=== PATIENT | male | born 1950 | race Caucasian/White ===

== ENCOUNTER 2017-09-14 14:06 | Emergency (ER) | payer MEDICARE ==
[~2017-09-14] VITALS: Ht 177.8 cm; Wt 129.1 kg
[~2017-09-14 14:06] MED LIST: CARDIZEM CD 12120 MG PO; FE-TABS325 MG PO; FLOMAX 0.40.4 MG/CAP PO; FOLIC ACID 40400 MCG PO; LASIX 40MG TABL40 MG PO; MACROBID 1100 MG/CAP PO; MULTAQ400 MG PO; PRINIVIL10 MG PO; TYLENOL 500MG500 MG PO; ULTRAM50 MG PO; VITAMIN C500 MG PO; XARELTO20 MG PO
[2017-09-14 14:10] VITALS: TEMP 97.3
[2017-09-14] MEDS ORDERED: XARELTO20 MG PO (14:15)
[2017-09-14] MEDS ORDERED: CARTIA XT180 MG PO (14:15)
[2017-09-14] MEDS ORDERED: ZESTRIL40 MG PO (14:16)
[2017-09-14] MEDS ORDERED: LASIX 20MG TABL20 MG PO (14:16)
[2017-09-14 14:51] LABS: BASO # 0.1 (0.0-0.2); BASO % 0.6 % (0.0-2.0); EOS # 0.8 (0.0-0.7); EOS % 7.6 % (0-4.0); GRAN # 5.9 (1.4-6.5); GRAN % 58.9 % (42.2-75.2); HEMOGLOBIN 11.3 g/dl (13.5-18.0); LYMPH # 2.2 (1.2-3.4); LYMPH % 21.9 % (20.0-51.0); MEAN CELL VOLUME 86 fl (80.0-100.0); MEAN CORPUSCULAR HEMOGLOBIN 27 pg (27.0-31.0); MEAN CORPUSCULAR HGB CONC 31 g/dl (33.0-37.0); MEAN PLATELET VOLUME 10.4 fl (7.4-10.4); MONO # 1.1 (0.1-0.6); MONO % 10.4 % (1.7-9.3); PLATELET COUNT 286 K/mm3 (130-400); RED BLOOD COUNT 4.23 M/mm3 (4.20-5.60); REDCELL DISTRIBUTION WIDTH-CV 15.4 % (11.5-14.5)
[2017-09-14 14:58] LABS: HEMATOCRIT 36.2 % (42.0-52.0); INR 1.8 (0.8-3.0)
[2017-09-14 15:20] LABS: ALANINE AMINOTRANSFERASE 28 U/L (21-72); ALBUMIN 3.4 gm/dL (3.5-5.0); ALKALINE PHOSPHATASE 113 U/L (50-136); ANION GAP 13 mmol/L (7-16); AST,SGOT 18 U/L (15-37); BILIRUBIN,TOTAL 0.3 mg/dL (0.0-1.0); BLOOD UREA NITROGEN 20 mg/dL (9-20); CALCIUM 8.7 mg/dL (8.4-10.2); CARBON DIOXIDE 23 mmol/L (22-30); CHLORIDE 105 mmol/L (98-107); CREATININE, serum 1.07 mg/dL (0.66-1.25); GLUCOSE 98 mg/dL (74-106); POTASSIUM 4.3 mmol/L (3.4-5.0); SODIUM 141 mmol/L (137-145); TOTAL PROTEIN 7.2 gm/dL (6.4-8.2)
[2017-09-14 15:33] LABS: TROPONIN-I < 0.012 ng/mL (0.000-0.034)
[2017-09-14 16:57] VITALS: BP 110/80; PULSE 75
== END 2017-09-14 16:59 | disposition home or self-care (01) ==
LOC: COL.ER 14:06
PROVIDERS: Emergency Medicine
DX: I48.91 Unspecified atrial fibrillation (principal); R42 Dizziness and giddiness; I10 Essential (primary) hypertension
CPT/HCPCS: J1200; J2765; J7040

== ENCOUNTER 2017-10-08 19:12 | Emergency (ER) | payer MEDICARE ==
[~2017-10-08] VITALS: Ht 177.8 cm; Wt 127.3 kg
[~2017-10-08 19:12] MED LIST changes: +CARTIA XT180 MG PO; +LASIX 20MG TABL20 MG PO; +ZESTRIL40 MG PO
[2017-10-08 19:20] VITALS: TEMP 98.1
[2017-10-08 19:59] LABS: BASO # 0.1 (0.0-0.2); BASO % 0.5 % (0.0-2.0); EOS # 0.4 (0.0-0.7); EOS % 4.4 % (0-4.0); GRAN # 5.7 (1.4-6.5); HEMOGLOBIN 10.6 g/dl (13.5-18.0); LYMPH % 21.4 % (20.0-51.0); MEAN CELL VOLUME 85 fl (80.0-100.0); MEAN CORPUSCULAR HEMOGLOBIN 27 pg (27.0-31.0); MEAN CORPUSCULAR HGB CONC 32 g/dl (33.0-37.0); MEAN PLATELET VOLUME 9.5 fl (7.4-10.4); MONO % 11.2 % (1.7-9.3); PLATELET COUNT 278 K/mm3 (130-400); RED BLOOD COUNT 3.91 M/mm3 (4.20-5.60); REDCELL DISTRIBUTION WIDTH-CV 15.1 % (11.5-14.5)
[2017-10-08 20:02] LABS: HEMATOCRIT 33.4 % (42.0-52.0)
[2017-10-08 20:13] LABS: ALANINE AMINOTRANSFERASE 25 U/L (21-72); ALBUMIN 3.4 gm/dL (3.5-5.0); ALKALINE PHOSPHATASE 89 U/L (50-136); ANION GAP 12 mmol/L (7-16); AST,SGOT 21 U/L (15-37); BILIRUBIN,TOTAL 0.2 mg/dL (0.0-1.0); BLOOD UREA NITROGEN 18 mg/dL (9-20); CALCIUM 8.6 mg/dL (8.4-10.2); CARBON DIOXIDE 23 mmol/L (22-30); CHLORIDE 106 mmol/L (98-107); CREATININE, serum 0.89 mg/dL (0.66-1.25); GLUCOSE 117 mg/dL (74-106); POTASSIUM 3.9 mmol/L (3.4-5.0); SODIUM 141 mmol/L (137-145); TOTAL PROTEIN 7.2 gm/dL (6.4-8.2)
[2017-10-08 20:26] LABS: TROPONIN-I < 0.012 ng/mL (0.000-0.034)
[2017-10-08] MEDS ORDERED: RAPAFLO4 MG PO (21:00)
[2017-10-08] MEDS ORDERED: CARTIA XT300 MG PO (21:40)
[2017-10-08 22:30] VITALS: BP 129/73; PULSE 86
== END 2017-10-08 22:30 | disposition home or self-care (01) ==
LOC: COL.ER 19:12
PROVIDERS: Emergency Medicine
DX: I50.9 Heart failure, unspecified (principal); I48.91 Unspecified atrial fibrillation; J06.9 Acute upper respiratory infection, unspecified; E66.9 Obesity, unspecified; I10 Essential (primary) hypertension; Z90.49 Acquired absence of other specified parts of digestive tract; Z98.890 Other specified postprocedural states; Z79.01 Long term (current) use of anticoagulants

== ENCOUNTER 2017-10-22 05:57 | Day surgery (SDC) | payer MEDICARE ==
[2017-10-22] VITALS (10 sets, daily range): BP systolic 101–129; BP diastolic 66–82; PULSE 65–99; TEMP 97.8
[~2017-10-22] VITALS: Ht 177.8 cm; Wt 123.9 kg
[~2017-10-22 05:57] MED LIST changes: +CARTIA XT300 MG PO; +RAPAFLO4 MG PO
[2017-10-22 06:47] LABS: INR 1.4 (0.8-3.0); POTASSIUM 4.4 mmol/L (3.4-5.0); PROTHROMBIN TIME 15.9 SECONDS (9.7-12.8)
[2017-10-22 07:22] LABS: THYROID STIMULATING HORMONE 1.34 uIU/mL (0.465-4.680)
[2017-10-22] MEDS ORDERED: CARDIZEM CD 30300 MG PO (07:37)
[2017-10-22] MEDS ORDERED: PACERONE400 MG PO (09:48)
== END 2017-10-22 11:37 | disposition home or self-care (01) ==
LOC: COL.CAR 05:57
PROVIDERS: Internal Medicine Interventional Cardiology
DX: I48.0 Paroxysmal atrial fibrillation (principal); I34.0 Nonrheumatic mitral (valve) insufficiency; I51.7 Cardiomegaly; I87.2 Venous insufficiency (chronic) (peripheral); I83.813 Varicose veins of bilateral lower extremities with pain; Z79.01 Long term (current) use of anticoagulants; Z79.899 Other long term (current) drug therapy
CPT/HCPCS: J0282; J2250; J3010; J7030; J7060

== ENCOUNTER 2018-06-19 18:22 | Emergency (ER) | payer MEDICARE ==
[~2018-06-19] VITALS: Ht 177.8 cm; Wt 106.8 kg
[~2018-06-19 18:22] MED LIST changes: +CARDIZEM CD 30300 MG PO; +PACERONE400 MG PO
[2018-06-19 19:23] LABS: BASO % 0.4 % (0.0-2.0); EOS # 0.5 (0.0-0.7); EOS % 5.3 % (0-4.0); GRAN # 5.3 (1.4-6.5); GRAN % 59.4 % (42.2-75.2); LYMPH # 1.8 (1.2-3.4); LYMPH % 19.8 % (20.0-51.0); MEAN CELL VOLUME 73 fl (80.0-100.0); MEAN CORPUSCULAR HGB CONC 26 g/dl (33.0-37.0); MEAN PLATELET VOLUME 10.2 fl (7.4-10.4); MONO # 1.3 (0.1-0.6); MONO % 14.3 % (1.7-9.3); PLATELET COUNT 396 K/mm3 (130-400)
[2018-06-19 19:26] LABS: HEMATOCRIT 19.7 % (42.0-52.0); MEAN CORPUSCULAR HEMOGLOBIN 19 pg (27.0-31.0)
[2018-06-19 19:28] LABS: HEMOGLOBIN 5.1 g/dl (13.5-18.0)
[2018-06-19 19:38] LABS: INR 1.7 (0.8-3.0); PROTHROMBIN TIME 19.2 SECONDS (9.7-12.8)
[2018-06-19 19:39] LABS: ALANINE AMINOTRANSFERASE 18 U/L (21-72); ALBUMIN 3.6 gm/dL (3.5-5.0); ALKALINE PHOSPHATASE 79 U/L (50-136); ANION GAP 7 mmol/L (7-16); AST,SGOT 18 U/L (15-37); BILIRUBIN,TOTAL < 0.1 mg/dL (0.0-1.0); BLOOD UREA NITROGEN 25 mg/dL (9-20); CALCIUM 8.6 mg/dL (8.4-10.2); CARBON DIOXIDE 24 mmol/L (22-30); CHLORIDE 108 mmol/L (98-107); CREATININE, serum 0.89 mg/dL (0.66-1.25); GLUCOSE 106 mg/dL (74-106); LIPASE 99 U/L (23-300); POTASSIUM 4.5 mmol/L (3.4-5.0); SODIUM 139 mmol/L (137-145); TOTAL PROTEIN 6.8 gm/dL (6.4-8.2)
[2018-06-19 19:40] LABS: PARTIAL THROMBOPLASTIN TIME 35.4 SECONDS (26.0-37.0)
[2018-06-19 20:48] LABS: TROPONIN-I < 0.012 ng/mL (0.000-0.035)
[2018-06-19 22:07] VITALS: BP 119/59; PULSE 70; TEMP 98.2
[2018-06-19 22:14] VITALS: BP 121/61; PULSE 72; TEMP 99.2
[2018-06-19 22:26] VITALS: BP 115/53; PULSE 67; TEMP 98.1
[2018-06-19 22:38] VITALS: BP 119/76; PULSE 75; TEMP 97.5
[2018-06-19 22:41] VITALS: BP 119/76; PULSE 75
== END 2018-06-19 22:43 | disposition short-term general hospital (02) ==
LOC: COL.ER 18:22
PROVIDERS: Emergency Medicine
DX: D64.9 Anemia, unspecified (principal); I10 Essential (primary) hypertension; I48.91 Unspecified atrial fibrillation; Z90.49 Acquired absence of other specified parts of digestive tract; Z79.01 Long term (current) use of anticoagulants
CPT/HCPCS: C9113; P9016

== ENCOUNTER 2018-06-23 11:39 | Emergency (ER) | payer MEDICARE ==
[~2018-06-23] VITALS: Ht 177.8 cm; Wt 109.1 kg
[2018-06-23 11:53] VITALS: TEMP 97.1
[2018-06-23 12:40] LABS: BASO # 0.1 (0.0-0.2); BASO % 0.6 % (0.0-2.0); EOS # 0.5 (0.0-0.7); EOS % 5.4 % (0-4.0); GRAN # 5.8 (1.4-6.5); GRAN % 66.9 % (42.2-75.2); MEAN CELL VOLUME 77 fl (80.0-100.0); MEAN CORPUSCULAR HGB CONC 28 g/dl (33.0-37.0); MEAN PLATELET VOLUME 9.8 fl (7.4-10.4); MONO # 1.3 (0.1-0.6); MONO % 14.4 % (1.7-9.3); PLATELET COUNT 296 K/mm3 (130-400); RED BLOOD COUNT 3.32 M/mm3 (4.20-5.60)
[2018-06-23 12:50] LABS: ALBUMIN 3.3 gm/dL (3.5-5.0); BILIRUBIN,TOTAL 0.3 mg/dL (0.0-1.0); CALCIUM 8.4 mg/dL (8.4-10.2); CREATININE, serum 0.83 mg/dL (0.66-1.25); POTASSIUM 4.4 mmol/L (3.4-5.0); TOTAL PROTEIN 6.4 gm/dL (6.4-8.2)
[2018-06-23 13:02] LABS: HEMATOCRIT 25.6 % (42.0-52.0); HEMOGLOBIN 7.1 g/dl (13.5-18.0); MEAN CORPUSCULAR HEMOGLOBIN 21 pg (27.0-31.0)
[2018-06-23 14:08] VITALS: BP 138/60; PULSE 67
== END 2018-06-23 14:11 | disposition home or self-care (01) ==
LOC: COL.ER 11:39
PROVIDERS: Family Medicine
DX: D64.9 Anemia, unspecified (principal)

== ENCOUNTER 2018-06-23 13:49 | Outpatient (RCR) | payer MEDICARE ==
[~2018-06-23] VITALS: Ht 177.8 cm; Wt 109.0 kg
[2018-06-23 16:53] VITALS: BP 117/61; PULSE 62; TEMP 98.1
[2018-06-23 17:09] VITALS: BP 102/74; PULSE 69; TEMP 98
[2018-06-23 17:24] VITALS: BP 115/60; PULSE 58; TEMP 97.6
[2018-06-23 17:54] VITALS: BP 120/62; PULSE 57; TEMP 97.5
[2018-06-23 18:41] VITALS: BP 125/67; PULSE 58; TEMP 97.8
== END 2018-06-23 18:50 | disposition home or self-care (01) ==
LOC: EUO 15:02
DX: D64.9 Anemia, unspecified (principal)
CPT/HCPCS: J7050; P9016

== ENCOUNTER 2018-10-18 11:29 | Emergency (ER) | payer MEDICARE ==
[~2018-10-18] VITALS: Ht 177.8 cm; Wt 106.8 kg
[2018-10-18] MEDS ORDERED: CORDARONE200 MG/TAB PO (11:53)
[2018-10-18] MEDS ORDERED: PRINIVIL40 MG PO (11:54)
[2018-10-18] MEDS ORDERED: NATURAL IRON65 MG PO (11:54)
[2018-10-18 12:08] LABS: BASO # 0.1 (0.0-0.2); BASO % 0.8 % (0.0-2.0); EOS # 0.2 (0.0-0.7); EOS % 2.7 % (0-4.0); GRAN # 5.1 (1.4-6.5); GRAN % 66.8 % (42.2-75.2); HEMOGLOBIN 13.3 g/dl (13.5-18.0); LYMPH # 1.4 (1.2-3.4); LYMPH % 17.8 % (20.0-51.0); MEAN CELL VOLUME 90 fl (80.0-100.0); MEAN CORPUSCULAR HEMOGLOBIN 29 pg (27.0-31.0); MEAN CORPUSCULAR HGB CONC 32 g/dl (33.0-37.0); MEAN PLATELET VOLUME 10.3 fl (7.4-10.4); MONO # 0.9 (0.1-0.6); MONO % 11.4 % (1.7-9.3); PLATELET COUNT 196 K/mm3 (130-400); RED BLOOD COUNT 4.57 M/mm3 (4.20-5.60); REDCELL DISTRIBUTION WIDTH-CV 15.4 % (11.5-14.5)
[2018-10-18 12:16] LABS: ALBUMIN 3.7 gm/dL (3.5-5.0); BILIRUBIN,TOTAL 0.3 mg/dL (0.0-1.0); CALCIUM 8.7 mg/dL (8.4-10.2); CREATININE, serum 0.93 (0.66-1.25); POTASSIUM 4.3 mmol/L (3.4-5.0); TOTAL PROTEIN 7.4 gm/dL (6.4-8.2)
[2018-10-18 13:26] LABS: COLLECTION METHOD CLEAN CATCH
[2018-10-18 13:40] LABS: PH 8 (5-8); SQUAMOUS EPITHELIAL None Seen /hpf; URINE APPEARANCE Clear; URINE BACTERIA None Seen /hpf; URINE BILIRUBIN Negative (NEGATIVE); URINE BLOOD Negative (NEGATIVE); URINE COLOR Straw; URINE GLUCOSE Negative (NEGATIVE); URINE KETONE Negative (NEGATIVE); URINE LEUKOCYTE ESTERASE Negative (NEGATIVE); URINE NITRATE Negative (NEGATIVE); URINE PROTEIN(semi-quant) Negative (NEGATIVE); URINE RBC 0-2 /hpf; URINE UROBILINOGEN Negative (NEGATIVE)
[2018-10-18] MEDS ORDERED: CARTIA XT240 MG PO ×2 (14:35→14:51)
[2018-10-18 16:08] VITALS: BP 121/62; PULSE 54; TEMP 97.9
== END 2018-10-18 15:04 | disposition home or self-care (01) ==
LOC: COL.ER 11:29
PROVIDERS: Emergency Medicine
DX: R00.1 Bradycardia, unspecified (principal); R53.81 Other malaise; D64.9 Anemia, unspecified
CPT/HCPCS: J7030

== ENCOUNTER → 2020-06-01 | Outpatient (CLI) | payer MEDICARE ==
[~2020-06-01] MED LIST changes: +CARTIA XT240 MG PO; +CORDARONE200 MG/TAB PO; +NATURAL IRON65 MG PO; +PRINIVIL40 MG PO
[2020-06-01 12:01] LABS: BASO # 0.1 (0.0-0.2); BASO % 0.9 % (0.0-2.0); EOS # 0.6 (0.0-0.7); EOS % 6.7 % (0-4.0); GRAN # 5.7 (1.4-6.5); GRAN % 64.2 % (42.2-75.2); HEMATOCRIT 43.5 % (42.0-52.0); LYMPH # 1.4 (1.2-3.4); LYMPH % 15.6 % (20.0-51.0); MEAN CELL VOLUME 96 fl (80.0-100.0); MEAN CORPUSCULAR HEMOGLOBIN 31 pg (27.0-31.0); MEAN CORPUSCULAR HGB CONC 32 g/dl (33.0-37.0); MEAN PLATELET VOLUME 10.5 fl (7.4-10.4); MONO % 11.8 % (1.7-9.3); PLATELET COUNT 233 K/mm3 (130-400); RED BLOOD COUNT 4.54 M/mm3 (4.20-5.60)
[2020-06-01 12:53] LABS: ERYTHROCYTE SEDIMENTATION RATE 11 mm/hr (0-30)
== END ==
LOC: COL.LAB 11:32
PROVIDERS: Orthopaedic Surgery
DX: M25.552 Pain in left hip (principal); Z96.642 Presence of left artificial hip joint

== ENCOUNTER 2020-11-26 20:52 | Emergency (ER) | payer MEDICARE ==
[~2020-11-26] VITALS: Ht 177.8 cm; Wt 125.0 kg
[2020-11-26 20:59] VITALS: TEMP 97.1
[2020-11-26 22:35] VITALS: BP 151/84; PULSE 78
== END 2020-11-26 22:35 | disposition home or self-care (01) ==
LOC: COL.ER 20:52
DX: S49.91XA Unspecified injury of right shoulder and upper arm, initial encounter (principal); I10 Essential (primary) hypertension; I25.10 Atherosclerotic heart disease of native coronary artery without angina pectoris; Z79.899 Other long term (current) drug therapy; W10.1XXA Fall (on)(from) sidewalk curb, initial encounter; Y92.524 Gas station as the place of occurrence of the external cause

== ENCOUNTER 2021-02-06 17:49 | Emergency (ER) | payer MEDICARE ==
[~2021-02-06] VITALS: Ht 177.8 cm; Wt 125.0 kg
[2021-02-06 18:11] VITALS: TEMP 98.2
[2021-02-06 20:26] LABS: BASO # 0.1 K/mm3 (0.0-0.2); BASO % 1.1 % (0.0-2.0); EOS # 0.4 K/mm3 (0.0-0.7); EOS % 5.1 % (0-4.0); GRAN # 4.4 K/mm3 (1.4-6.5); GRAN % 58.3 % (42.2-75.2); HEMATOCRIT 41.4 % (42.0-52.0); HEMOGLOBIN 13.6 g/dl (13.5-18.0); LYMPH # 1.7 K/mm3 (1.2-3.4); LYMPH % 22.2 % (20.0-51.0); MEAN CELL VOLUME 93 fl (80.0-100.0); MEAN CORPUSCULAR HEMOGLOBIN 31 pg (27.0-31.0); MEAN CORPUSCULAR HGB CONC 33 g/dl (33.0-37.0); MEAN PLATELET VOLUME 10.4 fl (7.4-10.4); MONO # 0.9 K/mm3 (0.1-0.6); MONO % 12.6 % (1.7-9.3); PLATELET COUNT 214 K/mm3 (130-400); RED BLOOD COUNT 4.45 M/mm3 (4.20-5.60); REDCELL DISTRIBUTION WIDTH-CV 14.1 % (11.5-14.5)
[2021-02-06 20:36] LABS: INR 1.1 (0.8-3.0); PROTHROMBIN TIME 11.7 SECONDS (9.7-12.8)
[2021-02-06 20:45] LABS: ALBUMIN 3.6 gm/dL (3.4-4.8); BILIRUBIN,TOTAL 0.3 mg/dL (0.2-1.2); C-REACTIVE PROTEIN 0.63 mg/dL (0.00-0.50); CALCIUM 9.5 mg/dL (8.4-10.2); CREATININE, serum 0.83 mg/dL (0.72-1.25); POTASSIUM 3.8 mmol/L (3.5-4.5); TOTAL PROTEIN 7.3 gm/dL (6.2-8.1)
[2021-02-06 21:54] VITALS: BP 132/70; PULSE 76
== END 2021-02-06 21:42 | disposition home or self-care (01) ==
LOC: COL.ER 17:49
PROVIDERS: Physician Assistant
DX: I73.9 Peripheral vascular disease, unspecified (principal); M79.651 Pain in right thigh; I25.10 Atherosclerotic heart disease of native coronary artery without angina pectoris; I10 Essential (primary) hypertension; Z98.61 Coronary angioplasty status; Z79.899 Other long term (current) drug therapy
CPT/HCPCS: J2270

== ENCOUNTER 2021-06-03 06:33 | Emergency (ER) | payer MEDICARE ==
[~2021-06-03] VITALS: Ht 177.8 cm; Wt 125.0 kg
[2021-06-03 06:43] VITALS: TEMP 97.8
[2021-06-03 07:50] LABS: BASO # 0.1 K/mm3 (0.0-0.2); BASO % 1.1 % (0.0-2.0); EOS # 0.4 K/mm3 (0.0-0.7); EOS % 5.6 % (0.0-4.0); GRAN # 4.4 K/mm3 (1.4-6.5); GRAN % 66.3 % (42.2-75.2); HEMATOCRIT 40.5 % (42.0-52.0); HEMOGLOBIN 12.9 g/dl (13.5-18.0); LYMPH % 15.4 % (20.0-51.0); MEAN CELL VOLUME 93 fl (80.0-100.0); MEAN CORPUSCULAR HEMOGLOBIN 30 pg (27-31); MEAN CORPUSCULAR HGB CONC 32 g/dl (33.0-37.0); MEAN PLATELET VOLUME 10.8 fl (7.4-10.4); MONO # 0.7 K/mm3 (0.1-0.6); MONO % 10.7 % (1.7-9.3); PLATELET COUNT 192 K/mm3 (130-400); RED BLOOD COUNT 4.36 M/mm3 (4.20-5.60); REDCELL DISTRIBUTION WIDTH-CV 14.6 % (11.5-14.5)
[2021-06-03 08:06] LABS: ALANINE AMINOTRANSFERASE 13 U/L (0-55); ALBUMIN 3.3 gm/dL (3.4-4.8); ALKALINE PHOSPHATASE 80 U/L (40-150); ANION GAP 5 mmol/L (7-16); AST,SGOT 13 U/L (5-34); BILIRUBIN,TOTAL 0.3 mg/dL (0.2-1.2); BLOOD UREA NITROGEN 20 mg/dL (8-26); CALCIUM 8.8 mg/dL (8.4-10.2); CARBON DIOXIDE 25 mmol/L (23-31); CHLORIDE 110 mmol/L (98-107); GLUCOSE 121 mg/dL (70-99); SODIUM 140 mmol/L (136-145); TOTAL PROTEIN 7.1 gm/dL (6.2-8.1)
[2021-06-03 08:20] LABS: TROPONIN-I < 0.010 ng/mL (0.00-0.033)
[2021-06-03] MEDS ORDERED: ANTIVERT 25MG25 MG PO (08:52)
[2021-06-03 09:12] VITALS: BP 138/78; PULSE 55
== END 2021-06-03 09:12 | disposition home or self-care (01) ==
LOC: COL.ER 06:33
PROVIDERS: Student in an Organized Health Care Education/Training Program
DX: R42 Dizziness and giddiness (principal); I48.91 Unspecified atrial fibrillation; I10 Essential (primary) hypertension; Z79.02 Long term (current) use of antithrombotics/antiplatelets; Z79.899 Other long term (current) drug therapy

== ENCOUNTER 2022-06-09 16:12 | Emergency (ER) | payer MEDICARE ==
[~2022-06-09] VITALS: Ht 177.8 cm; Wt 125.0 kg
[~2022-06-09 16:12] MED LIST changes: +ANTIVERT 25MG25 MG PO
[2022-06-09 16:21] VITALS: TEMP 97.7
[2022-06-09 16:37] LABS: BASO # 0.1 K/mm3 (0.0-0.2); BASO % 0.7 % (0.0-2.0); EOS # 0.6 K/mm3 (0.0-0.7); EOS % 5.7 % (0.0-4.0); GRAN # 5.7 K/mm3 (1.4-6.5); GRAN % 58.3 % (42.2-75.2); HEMATOCRIT 44.6 % (42.0-52.0); HEMOGLOBIN 14.1 g/dl (13.5-18.0); LYMPH # 2.1 K/mm3 (1.2-3.4); LYMPH % 21.8 % (20.0-51.0); MEAN CELL VOLUME 94 fl (80.0-100.0); MEAN CORPUSCULAR HEMOGLOBIN 30 pg (27-31); MEAN CORPUSCULAR HGB CONC 32 g/dl (33.0-37.0); MEAN PLATELET VOLUME 10.6 fl (7.4-10.4); MONO # 1.2 K/mm3 (0.1-0.6); MONO % 12.6 % (1.7-9.3); PLATELET COUNT 253 K/mm3 (130-400); RED BLOOD COUNT 4.76 M/mm3 (4.20-5.60); REDCELL DISTRIBUTION WIDTH-CV 14.3 % (11.5-14.5)
[2022-06-09 16:43] LABS: PROTHROMBIN TIME 11.5 SECONDS (9.7-12.8)
[2022-06-09 16:46] LABS: PARTIAL THROMBOPLASTIN TIME 32.7 SECONDS (26.0-37.0)
[2022-06-09 16:53] LABS: ALBUMIN 3.5 gm/dL (3.4-4.8); BILIRUBIN,TOTAL 0.4 mg/dL (0.2-1.2); CREATININE, serum 0.99 mg/dL (0.72-1.25); POTASSIUM 3.8 mmol/L (3.5-4.5); TOTAL PROTEIN 7.5 gm/dL (6.2-8.1)
[2022-06-09 16:59] LABS: TROPONIN-I 0.015 ng/mL (0.00-0.033)
[2022-06-09 18:20] VITALS: BP 122/76; PULSE 70
== END 2022-06-09 18:29 | disposition home or self-care (01) ==
LOC: COL.ER 16:12
PROVIDERS: Physician Assistant
DX: I48.20 Chronic atrial fibrillation, unspecified (principal); I10 Essential (primary) hypertension; E78.5 Hyperlipidemia, unspecified; Z79.01 Long term (current) use of anticoagulants; Z79.899 Other long term (current) drug therapy; Z28.310 Unvaccinated for COVID-19

== ENCOUNTER → 2023-09-10 | Outpatient (CLI) | payer MEDICARE ==
[~2023-09-10] MED LIST changes: +BETAPACE 80MG80 MG PO; +CARTIA XT120 MG PO; +ELIQUIS 5MG PO; +HCTZ 25MG TAB25 MG PO; +LANOXIN 0.25M0.25 MG PO; +LIPITOR20 MG PO; +NORCO 325 MG-51 TAB PO; +PACERONE200 MG PO; +PLAVIX 75MG TAB75 MG PO; +TAMBOCOR 1100 MG/TAB PO
== END ==
LOC: EUO 09:00
DX: I48.91 Unspecified atrial fibrillation (principal)
CPT/HCPCS: C9482; J7050

== ENCOUNTER 2023-10-14 18:39 | Observation (INO) | payer MEDICARE ==
[~2023-10-14] VITALS: Ht 177.8 cm; Wt 85.2 kg
[~2023-10-14 18:39] MED LIST changes: -BETAPACE 80MG80 MG PO; -CARTIA XT120 MG PO; -HCTZ 25MG TAB25 MG PO; -TAMBOCOR 1100 MG/TAB PO
[2023-10-14 21:34] LABS: BASO # 0.1 K/mm3 (0.0-0.2); BASO % 1.1 % (0.0-2.0); EOS # 0.3 K/mm3 (0.0-0.7); EOS % 3.9 % (0.0-4.0); GRAN # 5.1 K/mm3 (1.4-6.5); GRAN % 62.9 % (42.2-75.2); HEMATOCRIT 39.2 % (42.0-52.0); HEMOGLOBIN 12.4 g/dl (13.5-18.0); LYMPH # 1.7 K/mm3 (1.2-3.4); LYMPH % 20.5 % (20.0-51.0); MEAN CELL VOLUME 93 fl (80.0-100.0); MEAN CORPUSCULAR HEMOGLOBIN 29 pg (27-31); MEAN CORPUSCULAR HGB CONC 32 g/dl (33.0-37.0); MEAN PLATELET VOLUME 10.9 fl (7.4-10.4); MONO # 0.9 K/mm3 (0.1-0.6); MONO % 11.2 % (1.7-9.3); PLATELET COUNT 237 K/mm3 (130-400); RED BLOOD COUNT 4.24 M/mm3 (4.20-5.60); REDCELL DISTRIBUTION WIDTH-CV 15.2 % (11.5-14.5)
[2023-10-14 21:51] LABS: ALANINE AMINOTRANSFERASE 17 U/L (0-55); ALBUMIN 3.7 g/dL (3.4-4.8); ALKALINE PHOSPHATASE 86 U/L (40-150); ANION GAP 9 mmol/L (7-16); AST,SGOT 15 U/L (5-34); BILIRUBIN,TOTAL 0.3 mg/dL (0.2-1.2); BLOOD UREA NITROGEN 23 mg/dL (8-26); CALCIUM 8.3 mg/dL (8.4-10.2); CHLORIDE 108 mEq/L (98-107); CREATININE, serum 0.91 mg/dL (0.72-1.25); GLUCOSE 95 mg/dL (70-99); POTASSIUM 4.3 mEq/L (3.5-4.5); SODIUM 139 mEq/L (136-145); TOTAL PROTEIN 7.1 g/dl (6.2-8.1)
[2023-10-14 22:10] LABS: TROPONIN-I < 0.010 ng/mL (0.00-0.033)
[2023-10-14] MEDS ORDERED: Furosemide 40 MG/4 ML VIAL IV ONE (23:15)
[2023-10-15] MEDS ORDERED: Acetaminophen 325 MG TAB PO PRN (01:15)
[2023-10-15] MEDS ORDERED: Ondansetron 4 MG/2 ML VIAL IV PRN (01:30)
[2023-10-15] MEDS ORDERED: Albuterol/Ipratropium 3 MG-0.5 MG/3 ML Neb Soln IH PRN (01:30)
[2023-10-15 02:32] VITALS: BP 147/70; PULSE 46; TEMP 97.7
--- NOTE | 2023-10-15 03:05 | NUR ---
THE PATIENT ARRIVED VIA WC ACCOMPANIED BY ED STAFF. THE PATIENT WAS ALERT AND ORIENTED. NO S/S OF DISTRESS NOTED. THE PATIENT WAS ORIENTED TO THE ROOM AND BED CONTROLS. CALL LIGHT WITHIN REACH.
[2023-10-15 04:37] VITALS: BP 163/94; PULSE 62; TEMP 97.9
[2023-10-15 04:38] VITALS: BP 162/94; PULSE 70; TEMP 96.3
[2023-10-15 07:11] LABS: ALANINE AMINOTRANSFERASE 17 U/L (0-55); ALBUMIN 3.7 g/dL (3.4-4.8); ALKALINE PHOSPHATASE 79 U/L (40-150); ANION GAP 9 mmol/L (7-16); AST,SGOT 15 U/L (5-34); BILIRUBIN,TOTAL 0.5 mg/dL (0.2-1.2); BLOOD UREA NITROGEN 22 mg/dL (8-26); CALCIUM 8.3 mg/dL (8.4-10.2); CHLORIDE 107 mEq/L (98-107); CREATININE, serum 0.88 mg/dL (0.72-1.25); GLUCOSE 80 mg/dL (70-99); POTASSIUM 3.7 mEq/L (3.5-4.5); SODIUM 142 mEq/L (136-145); TOTAL PROTEIN 6.9 g/dl (6.2-8.1)
[2023-10-15 07:19] LABS: TROPONIN-I 6 HR POST INITIAL < 0.010 ng/mL (0.00-0.033)
--- NOTE | 2023-10-15 07:26 | NUR ---
Bedside report received from YAHAIRA Mcdonnell. Pt awake in bed watching TV. Pt has no request at this time. Call light within reach.
[2023-10-15 07:27] VITALS: BP 162/78; PULSE 53; TEMP 97.5
[2023-10-15] MEDS ORDERED: BETAPACE 80MG80 MG PO (08:54)
[2023-10-15] MEDS ORDERED: HCTZ 25MG TAB25 MG PO (08:56)
[2023-10-15] MEDS ORDERED: hydroCHLOROthiazide 25 MG TAB PO SCH (09:00)
[2023-10-15] MEDS ORDERED: Apixaban 5 MG TABLET PO SCH (09:00)
[2023-10-15] MEDS ORDERED: Lisinopril 20 MG TAB PO SCH (09:00)
[2023-10-15] MEDS ORDERED: Furosemide 100 MG/10 ML VIAL IV SCH (09:00)
--- NOTE | 2023-10-15 10:45 | NUR ---
Pt awake in bed visiting with who is at bedside. Shift assessment completed. VSS. Pt A&O x4. BLE +1 pitting edema noted. Pt ambulates in room independently with no complications. Telemetry in place. Pt denies pain rating 0/10. Pt denies feelings SOA at this time. Pt has no request at this time, call light within reach.
[2023-10-15 11:26] VITALS: BP 146/68; PULSE 59; TEMP 98.1
--- NOTE | 2023-10-15 12:24 | NUR ---
SW met with patient and to complete initial assessment for discharge planning. Patient verified that he lives in [facility]) with his Nat ([phone]). He reports having named his as DPOA and their son Edenilson as alternate DPOA. Patient sees Dr. Hugo Charles as his PCP and uses [facility]. Patient uses a CPAP as his only DME. 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 Plan is to return home at discharge. Discharge plan: Home
[2023-10-15 12:51] VITALS: BP_SYST 146
[2023-10-15] MEDS ORDERED: TAMBOCOR 1100 MG/TAB PO (14:10)
[2023-10-15] MEDS ORDERED: CARTIA XT120 MG PO (14:10)
--- NOTE | 2023-10-15 14:57 | NUR ---
Discharge instructions provided to pt and pt verbalized understanding of discharge paperwork. INT to [facility] discontinued with tip intact. Pt tolerated well with no complaints. Telemetry discontinued. Pt is leaving facility with back to home.
[2023-10-15] MEDS ORDERED: Atorvastatin 20 MG TAB PO SCH (21:00)
== END 2023-10-15 14:58 | disposition home or self-care (01) ==
LOC: COL.ER 18:39 → MEDICAL 10-15 01:11
PROVIDERS: Nurse Practitioner; Physician Assistant; ADMIT Internal Medicine
DX: I11.0 Hypertensive heart disease with heart failure (principal); I50.9 Heart failure, unspecified; I48.0 Paroxysmal atrial fibrillation; E78.5 Hyperlipidemia, unspecified; R11.0 Nausea; Z79.02 Long term (current) use of antithrombotics/antiplatelets; Z79.01 Long term (current) use of anticoagulants; Z95.818 Presence of other cardiac implants and grafts
CPT/HCPCS: G0378; J1940